=== PATIENT | female | born 1955 | race Caucasian/White ===

== ENCOUNTER → 2023-11-08 08:24 | Outpatient (REF) | payer MEDICARE, BC, SELFPAY | LOC: HWRAD 08:24 | PROVIDERS: ATTENDING PHYSICIAN Internal Medicine | DX: M85.89 Other specified disorders of bone density and structure, multiple sites (principal) | CPT/HCPCS: 77080 ==

== ENCOUNTER → 2024-01-21 06:57 | Outpatient (REF) | payer MEDICARE, BC, SELFPAY | LOC: MRI 3T 06:57 | PROVIDERS: ATTENDING PHYSICIAN Physician Assistant; FAMILY PHYSICIAN Internal Medicine | DX: M54.16 Radiculopathy, lumbar region (principal) | CPT/HCPCS: 72148 ==

== ENCOUNTER → 2024-02-04 16:18 | Outpatient (REF) | payer MEDICARE, BC, SELFPAY | LOC: DHSLP 16:18 | PROVIDERS: ATTENDING PHYSICIAN Internal Medicine Critical Care Medicine; FAMILY PHYSICIAN Internal Medicine | DX: G47.30 Sleep apnea, unspecified (principal); R06.83 Snoring | CPT/HCPCS: 95800 ==

== ENCOUNTER → 2024-08-25 14:52 | Outpatient (REF) | payer MEDICARE, BC, SELFPAY | LOC: HWWDC 14:52 | PROVIDERS: ATTENDING PHYSICIAN Internal Medicine | DX: Z12.31 Encounter for screening mammogram for malignant neoplasm of breast (principal) | CPT/HCPCS: 77063; 77067 ==

== ENCOUNTER → 2024-08-28 06:56 | Outpatient (REF) | payer MEDICARE, BC, SELFPAY | LOC: PAVMRI 06:56 | PROVIDERS: ATTENDING PHYSICIAN Physician Assistant; FAMILY PHYSICIAN Internal Medicine | DX: M54.12 Radiculopathy, cervical region (principal) | CPT/HCPCS: 72141 ==

== ENCOUNTER → 2024-12-07 14:02 | Outpatient (REF) | payer MEDICARE, BC, SELFPAY | LOC: HWRAD 14:02 | PROVIDERS: ATTENDING PHYSICIAN Specialist; FAMILY PHYSICIAN Internal Medicine | DX: M54.12 Radiculopathy, cervical region (principal) | CPT/HCPCS: 73200 ==

== ENCOUNTER → 2024-12-15 09:17 | Outpatient (REF) | payer MEDICARE, BC, SELFPAY | LOC: HWRAD 09:17 | PROVIDERS: ATTENDING PHYSICIAN Specialist; FAMILY PHYSICIAN Internal Medicine | DX: M25.512 Pain in left shoulder (principal) | CPT/HCPCS: 73200 ==

== ENCOUNTER 2025-01-13 13:26 | Emergency (ER) | payer MEDICARE, BC, SELFPAY ==
[2025-01-13 13:27] VITALS: BP 165/88
--- NOTE | 2025-01-13 17:24 | ED.GENMED ---
History of Present Illness
General
Chief Complaint: Bowel Problem
Source: patient
Exam Limitations: none
Time Seen by Provider: 01/13/25 16:32
Nursing documentation reviewed up to this point in time: agreed with
History of Present Illness
History of Present Illness:
Patient is a 69-year-old female who presents to the ER for evaluation of abdominal pain. Patient had left shoulder replacement 1 week ago. She has not taken her oxycodone however has had intermittent constipation. Despite constipation she has
moved her bowels yesterday as well as today and does not feel that she is constipated. She has however had off-and-on abdominal pain for the past several days. This pain woke her up from sleep at 3 AM. She denies any fevers. She reports pain
seems to be generalized abdomen region. She denies any fevers, nausea or vomiting. Because of the surgery she is taking Celebrex Decadron Zofran and antibiotic in addition to her other medications. She is not on blood thinners other than aspirin
which she is on for prevention of clots after surgery. She denies any urinary frequency or urgency
Phy Exam
General Physical Exam
General Presentation: no apparent distress
General age: appears stated age
General Skin: warm and dry
General Habitus: normal
General Mental: alert
General Hydration: appears well hydrated
Cardiovascular Exam
Cardiovascular Exam: regular rate/rhythm, no murmur and normal peripheral pulses
Pulmonary Exam
Pulmonary Exam: lungs clear and no respiratory distress
Gastrointestinal Exam
Gastrointestinal Exam: soft and other (Nonspecific abdominal tenderness)
Course
Orders/Labs/Results
Orders:
Orders
01/13/25 17:27
Cardiac Monitoring- Treatment ONCE
IV Insert/Care/Rem.- Treatment PRN
0.9% Sodium Chloride 1000 ml [Nss] 1,000 ml IV BOLUS
01/13/25 17:28
CT Abd/pelvis W Iv Cont Urgent
Comment:
Reason For Exam: abd pain
01/13/25 17:38
Complete Blood Count/With Diff Urgent
Comprehensive Metabolic Panel Urgent
Lipase Urgent
01/13/25 18:21
Urinalysis Reflex To Culture Urgent
Date Specimen was Collected: 01/13/25
Time Specimen was Collected: 18:19
01/13/25 20:09
Enema- Treatment ONCE
Type: Milk of Molasses
Abnormal Lab Results
01/13/25 01/13/25
17:38 18:21
RBC 4.06 L 10^6/uL
(4.20-5.40)
Hgb 11.8 L g/dL
(12.0-16.0)
Hct 35.6 L %
(37.0-47.0)
Abs Immat Gran (auto) 0.1 H 10^3/uL
(0-0.05)
Absolute Neuts (auto) 6.7 H 10^3/uL
(1.4-6.5)
Absolute Monos (auto) 1.0 H 10^3/uL
(0.1-0.6)
Sodium 134 L mmol/L
(135-145)
Carbon Dioxide 32 H mmol/L
(22-30)
ALT 45 H U/L
(0-35)
Total Protein 6.1 L g/dl
(6.3-8.2)
Urine Glucose 4+ A
(Negative)
01/13/25 17:38
01/13/25 17:38
Vital Signs
Initial and Last Documented VS:
Initial Vital Signs
Temp Pulse Resp BP Pulse Ox
97.7 F 75 20 165/88 98
01/13/25 13:27 01/13/25 13:27 01/13/25 13:27 01/13/25 13:27 01/13/25 13:27
Last Documented Vital Signs
Temp Pulse Resp BP Pulse Ox
97.7 F 74 10 159/74 97
01/13/25 13:27 01/13/25 22:13 01/13/25 22:13 01/13/25 22:11 01/13/25 20:15
MDM/Problems Addressed
Differential Diagnosis Includes:
Not limited to constipation bowel obstruction diverticulitis
MDM/Problems Addressed:
Patient is a 69-year-old female presenting for constipation. Patient had a reverse shoulder replacement on Saturday She presented for abdominal pain and was constipated but did move her bowels both yesterday and today. With degree of abdominal
pain CAT scan done and shows severe constipation no other acute findings. I did review other findings on CAT scan including periportal edema and the importance of outpatient follow-up for this. Urine is negative for infection.
patient was given enema here and had some stool production however is well-appearing in no acute distress stable for discharge home. She is afebrile with normal white count stable hemoglobin and normal renal function.
Discharged home with instructions to continue to take MiraLAX and Colace.
*Radiology
Radiology exam reviewed: radiology read reviewed
*Pulse Oximetry
SaO2: 98
Oxygen Mode of Delivery: Room air
Patient hypoxic: no
*Critical Care Note
Total Time (30-74mins, 75-104mins- exclusive of procedures): Not Applicable
ED Attending Note
-
Portions of this chart may have been created with voice recognition software.� Occasional wrong word or��sound alike� substitutions may have occurred due to the inherent limitations of voice recognition software.
Discharge Plan
Departure
Patient Disposition: Home (Routine Discharge)
Date of Disposition: 01/13/25
Time of Disposition: 21:59
Patient with high blood pressure during this ER visit?: Yes
Condition: Fair
Covid-19: Not Applicable
Discharge Problem:
Constipation
Instructions: Constipation, Adult (DC), BLOOD PRESSURE
Prescriptions:
No Action
alprazolam 0.25 MG tablet
0.25 mg PO Q8HPRN PRN (Reason: anxiety) Qty: 0 0RF
magnesium hydroxide 30 ML suspension
30 ml PO DAILYPRN PRN (Reason: constipation) Qty: 0 0RF
calcium polycarbophil [Fiber-Tabs] 625 MG tablet
1,250 mg PO BID Qty: 0 0RF
losartan 50 MG tablet
50 mg PO BID Qty: 0 0RF
acetaminophen 325 MG tablet
650 mg PO Q4HPRN PRN (Reason: pain fever) Qty: 0 0RF
famotidine 20 MG tablet
20 mg PO HS Qty: 30 0RF
aspirin 325 MG tablet,delayed release (DR/EC)
325 mg PO DAILY Qty: 0 0RF
Rx Instructions:
w food
bisacodyl [OneLAX Bisacodyl] 10 MG suppository
10 mg NE DAILYPRN PRN (Reason: constipation) Qty: 0 0RF
docusate sodium 100 MG capsule
100 mg PO BID Qty: 0 0RF
bisacodyl 5 MG tablet,delayed release (DR/EC)
10 mg PO DAILYPRN PRN (Reason: constipation) Qty: 0 0RF
oxycodone 5 MG tablet
5 mg PO Q4HPRN PRN (Reason: moderate-severe pain) Qty: 90 0RF
calcium carbonate-vitamin D3 [Oyster Shell Calcium-Vit D3] 500 MG tablet
500 mg PO DAILY Qty: 0 0RF
Referrals:
UNKNOWN - PT DOES,NOT KNOW [Family Provider]
Activity Restrictions/Additional Instructions:
As discussed start Miralax daily and continue Colace. Increase water intake and fresh fruits and vegetables high fiber foods. follow up with your PCP in the next 2 days for re-evaluation and return if any worsening of symtpoms.
Interventions
Interventions:
*Risk Screen - Suicide Last Done: 01/13/25 13:32
*General Assessment Last Done: 01/13/25 13:27
*Neglect/Abuse Screening Last Done: 01/13/25 17:04
*ED- Fall Risk Assessment Last Done: 01/13/25 22:20
*ED COVID-19 Vaccine History Last Done: 01/13/25 17:04
*ED Influenza Vaccine History Last Done: 01/13/25 17:04
*Nursing Disposition Last Done: 01/13/25 22:20
MH-Hpqyfj-Xlpvyoeodp Assessment Last Done: 01/13/25 17:04
Discharge Date and Time
Discharge Date/Time: 01/13/25 22:22
Print Language: KAZAKH
[2025-01-13 17:25] VITALS: BMI 25.8
[2025-01-13] MEDS: NSS 1000 IV (17:40)
[2025-01-13 17:44] LABS: Hematocrit 35.6 % (37.0-47.0); Hemoglobin 11.8 g/dL (12.0-16.0); Mean Corp Hgb Conc. 33.1 g/dL (33.0-37.0); Mean Corpuscular Volume 87.7 fL (81.0-99.0); Nucleated Red Blood Cells % 0 %; Platelet Count 397 10^3/uL (130-400); Red Cell Dist. Width 13.4 % (11.5-14.5)
[2025-01-13 18:03] LABS: ALT (SGPT) 45 U/L (0-35); AST (SGOT) 31 U/L (14-36); Albumin 3.5 g/dl (3.5-5.0); Alkaline Phosphatase 72 U/L (38-126); Blood Urea Nitrogen 14 mg/dl (7-17); Calcium 8.6 mg/dl (8.4-10.2); Carbon Dioxide 32 mmol/L (22-30); Chloride 103 mmol/L (98-107); Estimated Creatinine Clearance 71 ml/min; Glucose 97 mg/dl (70-99); Lipase 119 U/L (23-300); Potassium 4.2 mmol/L (3.5-5.1); Sodium 134 mmol/L (135-145); Total Protein 6.1 g/dl (6.3-8.2); eGFR > 60.00
[2025-01-13 18:35] LABS: Urine Character Clear (Clear)
[2025-01-13 19:34] VITALS: BP 165/75
[2025-01-13 20:00] VITALS: BP 140/77
[2025-01-13 22:11] VITALS: BP 159/74
== END 2025-01-13 22:22 | disposition home or self-care (01) ==
LOC: EMR 13:26
PROVIDERS: Nurse Practitioner; EMERGENCY PHYSICIAN Student in an Organized Health Care Education/Training Program
DX: K59.00 Constipation, unspecified (principal); Z79.82 Long term (current) use of aspirin
CPT/HCPCS: 99284; 96360; 96361; 74177; 80053; 81003; 83690; 85025; Q9967

== ENCOUNTER → 2025-02-05 09:52 | Outpatient (REF) | payer MEDICARE, BC, SELFPAY | LOC: HWRAD 09:52 | PROVIDERS: ATTENDING PHYSICIAN Internal Medicine | DX: R91.8 Other nonspecific abnormal finding of lung field (principal) | CPT/HCPCS: 71250 ==

== ENCOUNTER → 2025-02-22 14:15 | Outpatient (REF) | payer MEDICARE, BC, SELFPAY | LOC: HWRAD 14:15 | PROVIDERS: ATTENDING PHYSICIAN Internal Medicine | DX: E04.1 Nontoxic single thyroid nodule (principal) | CPT/HCPCS: 76536 ==